=== PATIENT | male | born 1985 | race Caucasian/White ===

== ENCOUNTER 2017-10-05 07:51 | Emergency (ER) | END 2017-10-05 10:15 | disposition home or self-care (01) ==

== ENCOUNTER 2018-05-06 09:51 | Emergency (ER) | END 2018-05-06 11:00 | disposition home or self-care (01) ==

== ENCOUNTER 2018-06-23 20:46 | Emergency (ER) | END 2018-06-24 06:11 | disposition home or self-care (01) ==